=== PATIENT | male | born 1975 | race Caucasian/White ===

== ENCOUNTER 2018-03-14 12:05 | Emergency (ER) | payer OTHER ==
[2018-03-14 12:22] VITALS: TEMP 98.7
--- NOTE | 2018-03-14 12:52 | RAD ---
One radiograph chest. 2. Radiographs of the Abdomen. Indication: abd and back pain Comparison: None. Impression: Heart size normal. Lungs clear. No free air. Mild constipation without findings of obstruction. No abnormal calcifications. No acute osseous abnormality. Cam deformities of the bilateral femoral necks noted. Electronically signed by: Chai Baptiste MD 03/14/2018 12:50 PM [facility]
[2018-03-14] MEDS ORDERED: MAGNESIUM HYDROXIDE 30 ML UD PO ONE (15:02)
[2018-03-14] MEDS ORDERED: SODIUM CHLORIDE 0.9% 1000ML 1,000 ML IVS ONE (15:09)
[2018-03-14] MEDS ORDERED: KETOROLAC TROMETHAMINE INJ 30 MG/ML VIAL IV ONE (15:30)
--- NOTE | 2018-03-14 15:36 | ED.PDOC ---
History of Present Illness - General Chief Complaint: Abdominal Pain Stated Complaint: abdominal pain Time Seen by Provider: 03/14/18 12:18 Source: patient Exam Limitations: no limitations - History of Present Illness Initial Comments: The patient is a 43-year-old male who was pulled over by police. The patient reported that he was going to work. The patient was apparently not acting as if he was in any pain, and was going to walk to work due to some traffic violation that he was pulled over for. However when information came back that the patient has multiple offenses and a warrant out, the patient started complaining of severe abdominal and back pain. this is according to the officer that brought him in. According to the patient he had been having some chronic back pain issues for the last week. No nausea or vomiting. No definite fever. He denies any substance abuse. He does have multiple excoriations on his upper extremities from scratching. Additionally when the patient is left alone he falls asleep and needle in the room with him he starts rolling around and crying out as if he is in severe pain. The patient is obese. He is disheveled. Timing/Duration: unsure Improving Factors: nothing Worsening Factors: nothing Allergies/Adverse Reactions: Allergies Penicillins Allergy (Verified 03/14/18 12:22) Review of Systems - Review of Systems Constitutional: States: malaise EENTM: States: no symptoms reported Respiratory: States: no symptoms reported Cardiology: States: no symptoms reported Gastrointestinal/Abdominal: States: abdominal pain, nausea Genitourinary: States: no symptoms reported Musculoskeletal: States: back pain Skin: States: no symptoms reported Neurological: States: anxiety Endocrine: States: no symptoms reported All other Systems: No Change from Baseline Past Medical History (General) - Patient Medical History Hx Cardiac Disorders: Yes Hx Thyroid Disease: Yes Hx Renal Disease: Yes Surgical History: no surgical history - Vaccination History Hx Influenza Vaccination: No Hx Pneumococcal Vaccination: No - Social History Hx Tobacco Use: Yes Hx Alcohol Use: No Hx Substance Use: Yes - marijuana occasional Family Medical History - Family History Mother Family History: Unknown Physical Exam - Physical Exam General Appearance: Alert, No apparent distress - when left alone Eye Exam: bilateral normal Ears, Nose, Throat: hearing grossly normal, normal ENT inspection, normal pharynx Neck: full range of motion, supple Respiratory: lungs clear, normal breath sounds, no respiratory distress, no accessory muscle use Cardiovascular/Chest: normal peripheral pulses, regular rate, rhythm, no edema Peripheral Pulses: radial,right: 2+, radial,left: 2+, dorsalis pedis,right: 2+, dorsalis pedis,left: 2+ Gastrointestinal/Abdominal: non tender - morbidly obese. No point tenderness. No palpable mass. No definite rebound or peritoneal signs at this point, soft Rectal Exam: deferred Back Exam: other - he does have some mild tenderness over the right sacroiliac joint. 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 Comments: Vital Signs - 8 hr 03/14/18 12:08 Temperature 98.7 F Pulse Rate [ 106 H pulse ox] Respiratory 20 Rate Blood Pressure 154/109 [Left Arm] O2 Sat by Pulse 96 Oximetry Progress - Progress Progress: 03/14/18 15:38 the patient is a 43-year-old male presenting to emergency room in police custody after having been arrested complaining of abdominal and back pain. Workup does not seem to indicate any significant acute pathology. He does likely have some chronic low back pain from arthritic changes and mild sacroiliitis. He was given a dose of Toradol for this. He does also have significant constipation which could possibly be giving him some of his symptoms. He was given a dose of milk of magnesia for this and he does need to increase his fluid and fiber intake to prevent further complications from this. He was given a liter of IV fluids here as he was mildly dehydrated. Urine drug screen is positive for marijuana and methamphetamine. He obviously needs to avoid these substances as they can certainly worsen his constipation issues. ER warnings were given. The patient will be discharged to police custody. - Results/Orders Results/Orders: 03/14/18 15:09 Sodium Chloride 0.9% 1000ML [Ns 1000 ml] 1,000 ml IVS ONCE Laboratory Results - last 24 hr 03/14/18 03/14/18 03/14/18 12:42 12:42 12:42 WBC 8.8 RBC 4.52 L Hgb 12.9 L Hct 39.6 L MCV 87.7 MCH 28.5 MCHC 32.5 L RDW 16.2 H Plt Count 274 MPV 8.7 Absolute Neuts (auto) 5.70 Absolute Lymphs (auto) 1.90 Absolute Monos (auto) 0.70 Absolute Eos (auto) 0.40 Absolute Basos (auto) 0.10 Neutrophils % 65.0 Lymphocytes % 21.1 Monocytes % 8.0 Eosinophils % 4.4 Basophils % 1.5 Sodium 137 Potassium 3.4 L Chloride 102 Carbon Dioxide 25 Anion Gap 13.4 BUN 17 Creatinine 1.39 H BUN/Creatinine Ratio 12.2 Random Glucose 107 H Serum Osmolality 275.8 Calcium 9.1 Magnesium 1.9 Total Bilirubin 0.5 AST 49 H ALT 25 Alkaline Phosphatase 65 Serum Total Protein 7.9 Albumin 4.6 Globulin 3.3 Albumin/Globulin Ratio 1.4 Amylase 62 Lipase 30 Urine Color Urine Appearance Urine pH Ur Specific [place] Urine Protein Urine Glucose (UA) Urine Ketones Urine Blood Urine Nitrite Urine Bilirubin Urine Urobilinogen Ur Leukocyte Esterase Urine RBC Urine WBC Ur Epithelial Cells Urine Bacteria Urine Opiates Screen Urine Barbiturates Ur Phencyclidine Scrn U Amphetamin/Meth Scrn U Benzodiazepines Scrn U Cocaine Metab Screen U Cannabinoids Screen Ethyl Alcohol < 5.40 03/14/18 03/14/18 14:00 14:00 WBC RBC Hgb Hct MCV MCH MCHC RDW Plt Count MPV Absolute Neuts (auto) Absolute Lymphs (auto) Absolute Monos (auto) Absolute Eos (auto) Absolute Basos (auto) Neutrophils % Lymphocytes % Monocytes % Eosinophils % Basophils % Sodium Potassium Chloride Carbon Dioxide Anion Gap BUN Creatinine BUN/Creatinine Ratio Random Glucose Serum Osmolality Calcium Magnesium Total Bilirubin AST ALT Alkaline Phosphatase Serum Total Protein Albumin Globulin Albumin/Globulin Ratio Amylase Lipase Urine Color Yellow Urine Appearance Clear Urine pH 6.0 Ur Specific [place] >= 1.030 Urine Protein 30 Urine Glucose (UA) Negative Urine Ketones Negative Urine Blood Trace-intact H Urine Nitrite Negative Urine Bilirubin Negative Urine Urobilinogen 0.2 Ur Leukocyte Esterase Negative Urine RBC 0-1 Urine WBC 0 Ur Epithelial Cells 0 Urine Bacteria 0 Urine Opiates Screen Negative Urine Barbiturates Negative Ur Phencyclidine Scrn Negative U Amphetamin/Meth Scrn Positive H U Benzodiazepines Scrn Negative U Cocaine Metab Screen Negative U Cannabinoids Screen Positive H Ethyl Alcohol acute abdominal series shows constipation. No evidence of any perforation or obstruction or pneumonia.he does have obvious arthritic changes in the low back. Departure - Departure Clinical Impression: Substance abuse Constipation Qualifiers: Constipation type: drug induced constipation Qualified Code(s): K59.03 - Drug induced constipation Chronic low back pain Qualifiers: Back pain laterality: right Sciatica presence: without sciatica Qualified Code(s): M54.5 - Low back pain; G89.29 - Other chronic pain Disposition: Fdc Condition: Fair Departure Forms: ED Discharge - Pt. Copy, Patient Portal Self Enrollment Instructions: Constipation, Adult (DC), Polysubstance Abuse (DC), Dehydration, Adult (DC), Low Back Pain (DC) Diet: regular diet - High-fiber Activity: increase activity as tolerated Additional Instructions: The patient has constipation and needs to eat a high-fiber diet. He needs to increase his liquid intake. He was given a dose of milk of magnesia here. The patient has mild dehydration and was given a liter of IV fluids. The patient appears to have chronic low back pain likely from some advancing arthritis. He was given a dose of Toradol here. He can use Motrin as needed. Weight loss and stretching exercises may also help with discomfort. The patient has tested positive for several substances. He also needs to avoid illicit drug use as this can certainly make his constipation worse and cause other health problems. Keep routine follow-up with primary care doctor. The patient will be discharged to custody.
[2018-03-14 16:10] VITALS: O2SAT 96
[2018-03-14 17:08] VITALS: BP 137/92
== END 2018-03-14 16:40 ==
LOC: ER 12:05
DX: K59.00 Constipation, unspecified (principal); M54.5 Low back pain; G89.29 Other chronic pain; F15.10 Other stimulant abuse, uncomplicated; F12.10 Cannabis abuse, uncomplicated; I51.9 Heart disease, unspecified; E07.9 Disorder of thyroid, unspecified; N18.9 Chronic kidney disease, unspecified; Z87.891 Personal history of nicotine dependence; Z88.0 Allergy status to penicillin
CPT/HCPCS: 74019; 80053; 80307; 80320; 81001; 82150; 83690; 83735; 85025; J1885; J7030

== ENCOUNTER → 2018-03-31 | Outpatient (CLI) | payer OTHER | LOC: YCFC.O 12:53 | PROVIDERS: ATTEND Family Medicine | DX: E03.9 Hypothyroidism, unspecified (principal) ==